=== PATIENT | female | born 1935 | race Two or more races ===

== ENCOUNTER → 2017-07-01 | Outpatient (CLI) | payer OTHER ==
--- NOTE | 2017-07-01 16:31 | RADRPT ---
PROCEDURE: Right knee radiographs. CLINICAL INDICATION: Right knee pain. TECHNIQUE: Four views. Weight bearing. Frontal, lateral, oblique, and patellar view. COMPARISON: No prior studies are available for comparison. FINDINGS: There is no fracture or dislocation. Vascular calcifications are present consistent with atherosclerosis. Articular surfaces are intact. There is mild medial joint compartment narrowing.. There is no lytic or blastic lesion. There is no radiopaque foreign body. IMPRESSION: 1. 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 2. Atherosclerosis. 3. Otherwise unremarkable study. RPTAT: QQ .Jeff Lau MD, MD Date Time Electronically viewed and signed by .Jeff Lau MD, on 07/01/2017 16:30 .R/
--- NOTE | 2017-07-02 04:41 | HKNOTE ---
DATE OF SERVICE: 07/01/2017 CHIEF COMPLAINT: Right knee pain. HISTORY OF PRESENT ILLNESS: This is an 82-year-old female who is complaining of pain in the right k nee for the last 2 months. She does not use any assist devices. She has seen her primary care doct or to rule out a DVT. According to her daughter, ultrasound was done which did not show any DVT. T he pain is on the medial side of the knee. She denies any locking, catching or instability. She do es not use any braces. She takes ibuprofen for pain control. She denies any history of trauma. Sh e denies any back or groin pain. She has no other complaints. GAIT: Nonantalgic, no limp and no use of assist device. RIGHT KNEE: Neutral alignment, 0 to 130 degrees range of motion, tender over the medial joint line. Nontender over the lateral joint line. Negative Jose's, negative Fredis, negative anterior d rawer, negative posterior drawer. MOTOR STRENGTH: 5/5, hamstrings, quadriceps, tibialis anterior, gastric soleus. X-RAYS RIGHT KNEE: 3 views of the right knee demonstrate minimal medial joint space narrowing. The re are no osteophytes or subchondral sclerosis. There is no fracture or dislocations. ASSESSMENT: An 82-year-old female with right knee pain. PLAN: We will request authorization for physical therapy. She can take ibuprofen for pain control. She will follow up as needed in the future. Dictated By: VANIA DEMARCO/HOMAR Conf#: [id number] DID#: [id number]
== END | disposition home or self-care (01) ==
LOC: HKI 15:14
PROVIDERS: ATTEND Orthopaedic Surgery Adult Reconstructive Orthopaedic Surgery
DX: M25.561 Pain in right knee (principal)
CPT/HCPCS: G0463